=== PATIENT | male | born 1990 | race African-American/Black ===

== ENCOUNTER 2020-10-12 14:46 | Emergency (ER) | payer OTHER ==
[2020-10-12] MEDS ORDERED: LIDOCAINE 1%/EPINEPHRINE INJ 20 ML VIAL INJ ONE (15:02)
--- NOTE | 2020-10-12 15:05 | ER Document Report ---
HPI - HPI Time Seen by Provider: 10/12/20 14:54 Context: Patient is a 30-year-old male presents to the emergency department with a chief complaint of a laceration to his right kenyon. Patient states that he was moving furniture up and down stairs and he knows he hit his left kenyon, but did not know he hit his right kenyon until he started bleeding. He is up-to-date on his tetanus immunization. He received in 2016. - ROS Systems Reviewed and Negative: Yes All other systems reviewed and negative - CONSTITUTIONAL Constitutional: DENIES: Fever, Chills - NEURO Neurology: DENIES: Weakness - MUSCULOSKELETAL Musculoskeletal: REPORTS: Extremity pain - Bilateral lower extremities, Swelling - Right lower extremity - DERM Skin Color: Normal Skin Problems: Abrasion - Left kenyon, Laceration - L-shaped to the right kenyon Past Medical History - General Information source: Patient - Social History Smoking Status: Unknown if Ever Smoked Family History: Reviewed & Not Pertinent Vertical Provider Document - CONSTITUTIONAL Agree With Documented VS: Yes Exam Limitations: No Limitations General Appearance: No Apparent Distress - HEENT HEENT: Atraumatic, Normocephalic, PERRLA - RESPIRATORY Respiratory: No Respiratory Distress - CARDIOVASCULAR Pulses: Normal: Posterior tibial, Dorsalis pedis - MUSCULOSKELETAL/EXTREMETIES Musculoskeletal/Extremeties: FROM - NEURO Level of Consciousness: Awake, Alert, Appropriate Motor/Sensory: No Motor Deficit, No Sensory Deficit - DERM Integumentary: Laceration - Right kenyon, see procedure note. Abrasion noted to left kenyon Course - Re-evaluation Re-evalutation: 10/12/20 Laceration was repaired. See procedure note. X-rays are unremarkable. Patient will follow up with the emergency department or [employer] to have his sutures removed. He is in agreement with this plan. Follow-up precautions were given. Verbal discharge instructions were given to the patient. They verbalized understanding. They are stable for discharge. - Vital Signs Vital signs: Temp Pulse Resp BP Pulse Ox 98.0 F 59 L 18 153/81 H 100 10/12/20 14:50 10/12/20 14:50 10/12/20 14:50 10/12/20 14:50 10/12/20 14:50 Procedures - Laceration/Wound Repair Right kenyon Wound length (cm): 6 Wound's Depth, Shape: Flap Laceration pre-procedure: Sterile PPE donned Anesthetic type: 1% Lidocaine w/epi Volume Anesthetic (mLs): 5 Wound explored: Clean, No foreign body removed Wound Repaired With: Sutures Suture Size/Type: 4:0, Nylon Number of Sutures: 8 Post-procedure wound care: Sterile dressing applied Post-procedure NV exam normal: Yes Complications: No Adult Front & Back picture: 1 - Flap laceration Discharge - Discharge Clinical Impression: Leg laceration Qualifiers: Encounter type: initial encounter Laterality: right Qualified Code(s): S81.811A - Laceration without foreign body, right lower leg, initial encounter Contusion, lower leg Qualifiers: Encounter type: initial encounter Laterality: unspecified laterality Qualified Code(s): S80.10XA - Contusion of unspecified lower leg, initial encounter Condition: Stable Disposition: HOME, SELF-CARE Instructions: Prophylactic Antibiotic ([facility]), Soap Cleansing ([facility]) Additional Instructions: Please return to your primary doctor, the ED, or an urgent care in 7 days for suture removal. Return immediately if you develop spreading redness around the wound, pus from the wound, worsening pain, or a fever of >100.4. Keep the area clean and dry. Wash gently with soap and water twice daily and cover with antibiotic ointment. Take your antibiotics as prescribed. You can take ibuprofen 600 mg and acetaminophen 1000 mg every 6 hours for pain and swelling. Prescriptions: Amoxicillin/Potassium Clav [Augmentin 755-125 Tablet] 1 tab PO BID #14 tab Forms: Return to Work
[2020-10-12] MEDS ORDERED: IBUPROFEN 600 MG TABLET PO ONE (16:26)
[2020-10-12 17:33] VITALS: BP 148/80
--- NOTE | 2020-10-12 17:48 | RADIOLOGY REPORT (SQ) ---
EXAM DESCRIPTION: TIB FIB BILAT 2 VIEWS IMAGES COMPLETED DATE/TIME: 10/12/2020 4:22 pm REASON FOR STUDY: laceration to right; contusion on left. COMPARISON: None. NUMBER OF VIEWS: Four views TECHNIQUE: Two radiographic images acquired of the right and left tibia and fibula to include the kn ee and ankle in at least one projection. LIMITATIONS: None. FINDINGS: MINERALIZATION: Normal. BONES: No acute fracture or dislocation. No worrisome bone lesions. SOFT TISSUES: No obvious swelling or foreign body. OTHER: No other significant finding. IMPRESSION: No radiographic abnormality of either lower leg. TECHNICAL DOCUMENTATION: JOB ID: [id number] 2010 [employer]- All Rights Reserved Reading location - IP/workstation name: [email or web address]
== END 2020-10-12 17:32 | disposition home or self-care (01) ==
LOC: ER 14:46
DX: S01.81XA Laceration without foreign body of other part of head, initial encounter (principal); W22.09XA Striking against other stationary object, initial encounter
CPT/HCPCS: 12002; 99283; 73590; J3490

== ENCOUNTER 2020-10-19 14:23 | Emergency (ER) | payer OTHER ==
[2020-10-19 14:43] VITALS: BP 161/87
--- NOTE | 2020-10-19 15:12 | ER Document Report ---
ED Suture/Wound Recheck - General Chief Complaint: Suture Removal Stated Complaint: SUTURE REMOVAL Time Seen by Provider: 10/19/20 15:04 Mode of Arrival: Ambulatory Information source: Patient - HPI Notes: Patient is a 30 y/o male who presents for suture removal. Patient was hit with something on his right lower leg one week ago and had 8 sutures placed. He was put on augmentin as antibiotic prophylaxis. He has no complaints today and states the wound has been healing well. He will complete the course of antibiotics tomorrow. His tetanus is up to date. - Related Data Allergies/Adverse Reactions: No Known Allergies Allergy (Verified 10/19/20 15:04) Past Medical History - General Information source: Patient - Social History Smoking Status: Unknown if Ever Smoked Family History: Reviewed & Not Pertinent Review of Systems - Review of Systems Constitutional: No symptoms reported EENT: No symptoms reported Cardiovascular: No symptoms reported Respiratory: No symptoms reported Gastrointestinal: No symptoms reported Genitourinary: No symptoms reported Male Genitourinary: No symptoms reported Musculoskeletal: No symptoms reported Skin: See HPI Hematologic/Lymphatic: No symptoms reported Neurological/Psychological: No symptoms reported Physical Exam - Vital signs Vitals: Temp Pulse Resp BP Pulse Ox 98.3 F 75 18 161/87 H 98 10/19/20 14:42 10/19/20 14:42 10/19/20 14:42 10/19/20 14:42 10/19/20 14:42 - Notes Notes: PHYSICAL EXAMINATION: GENERAL: Well-appearing, well-nourished and in no acute distress. HEAD: Atraumatic, normocephalic. EYES: sclera anicteric, conjunctiva are normal. ENT: Moist mucous membranes. NECK: Normal range of motion LUNGS: Normal work of breathing HEART: 2+ radial pulses bilaterally EXTREMITIES: no pitting or edema. No cyanosis. NEUROLOGICAL: No focal neurological deficits. Moves all extremities spontaneously and on command. PSYCH: Normal mood, normal affect. SKIN: Well healing V-shaped laceration to the right anterior mid-kenyon with [address]. Ecchymosis noted around the laceration but no redness, warmth or swelling noted to the wound or lower leg. Warm, Dry, normal turgor. Course - Re-evaluation Re-evalutation: Patient is a 30 y/o male who presents for suture removal. He had a laceration repair performed one week ago and was placed on augmentin. Vital signs are normal. On exam, well healing V-shaped laceration to the right anterior kenyon with no surrounding erythema, swelling or warmth, No drainage or bleeding noted. Based on presentation or exam, low concern for cellulitis or poor-wound healing. Sutures (x8) removed today without complication. Patient instructed to complete the course of antibiotics fully. Return precautions and follow-up instructions given. Patient understands and is agreeable with plan. Patient will be discharged home. - Vital Signs Vital signs: Temp Pulse Resp BP Pulse Ox 98.3 F 75 18 161/87 H 98 10/19/20 14:42 10/19/20 14:42 10/19/20 14:42 10/19/20 14:42 10/19/20 14:42 Discharge - Discharge Clinical Impression: Encounter for re-check of laceration wound, Encounter for removal of sutures Condition: Stable Disposition: HOME, SELF-CARE Additional Instructions: Complete the augmentin until all the pills are gone. Return if the wound become swollen, hot, or tender or if you develop fever or swelling to your right leg or foot. Referrals: [facility] [Provider Group] - Follow up as needed
== END 2020-10-19 15:15 | disposition home or self-care (01) ==
LOC: ER 14:23
DX: S81.811D Laceration without foreign body, right lower leg, subsequent encounter (principal); W22.09XD Striking against other stationary object, subsequent encounter